=== PATIENT | male | born 1940 | race Caucasian/White ===

== ENCOUNTER 2019-11-25 01:08 | Inpatient (IN) | payer MEDICARE, OTHER ==
[~2019-11-25] VITALS: Ht 172.7 cm; Wt 102.8 kg
[2019-11-25] MEDS ORDERED: DUTA0.5C16 PO (01:19)
[2019-11-25] MEDS ORDERED: VERA120C2 PO (01:19)
[2019-11-25] MEDS ORDERED: LISI-167 PO (01:19)
[2019-11-25] MEDS ORDERED: [UNRECOGNIZED DRUG - CODE] PO (01:19)
[2019-11-25] MEDS ORDERED: [UNRECOGNIZED DRUG - OTHER] (01:19)
--- NOTE | 2019-11-25 01:19 | NUR ---
Pt arrives via [facility] from home for inability to answer some questions appropriately starting at 1300. Pt in home iso for being on cruise to [place]. Pt is awake, alert and cooperative. Pt with normal gait and extremity strength/movement. Speech is cleared but confused. No facial droop. No hx of stroke or TIA. Pt is able to tell wifes name, his name and current date, but is unable to recall birthdate and where he is. Pt in gown. EKG performed. Pt on full monitors. PA at bedside.
--- NOTE | 2019-11-25 01:22 | NUR ---
is: Silvia Mckeon [phone]
[2019-11-25] MEDS ORDERED: SODIUM CHLORIDE FLUSH 10ML SYR IVF ONE (01:30)
[2019-11-25 01:36] LABS: BASOPHILS # (AUTO) 0.01 x10^3/uL (0-0.1); BASOPHILS % (AUTO) 0 % (0-1); EOSINOPHILS # (AUTO) 0.01 x10^3/uL (0-0.4); EOSINOPHILS % (AUTO) 0 % (1-7); LYMPHOCYTES % (AUTO) 5 % (22-44); MD NO; MEAN CORPUSCULAR HGB CONC 33.3 g/dL (33.2-36.2); MEAN CORPUSCULAR VOLUME 90.2 fL (81-97); MEAN PLATELET VOLUME 8.3 fL (7.4-10.4); MONOCYTES # (AUTO) 0.68 x10^3/uL (0.2-0.8); MONOCYTES % (AUTO) 4 % (2-9); NEUTROPHILS # (AUTO) 14.68 x10^3/uL (1.8-6.8); NEUTROPHILS % (AUTO) 91 % (42-75); PLATELET COUNT 214 x10^3/uL (130-400); RED BLOOD COUNT 5.82 x10^6/uL (4.38-5.82); RED CELL DISTRIBUTION WIDTH 13.9 % (9.4-14.8)
[2019-11-25 01:45] LABS: ALANINE AMINOTRANSFERASE 34 U/L (12-78); ALBUMIN 3.8 g/dL (3.4-5.0); ANION GAP 9 mmol/L (5-15); CALCIUM 9.6 mg/dL (8.5-10.1); CHLORIDE 106 mmol/L (98-107); CREATININE 1.36 mg/dL (0.7-1.3)
[2019-11-25 01:47] LABS: ALKALINE PHOSPHATASE 111 U/L (45-117); BILIRUBIN,TOTAL 0.7 mg/dL (0.2-1.0)
--- NOTE | 2019-11-25 02:04 | NUR ---
Pt returned from CT. Pt given pillow. Pt placed back on monitors. VSS. Urinal at bedside for sample.
--- NOTE | 2019-11-25 02:19 | NUR ---
Pt able to stand without assist and pee in urinal. Urine sent. Pt placed 2L NC for RA sats of 86-88%.
[2019-11-25 02:23] LABS: MICROSCOPIC NOT IND
[2019-11-25 02:27] LABS: CULTURE INDICATED? NO
[2019-11-25] MEDS ORDERED: CEFTRIAXONE PMX 1GM/50ML 50 ML IV ONE (02:30)
[2019-11-25] MEDS ORDERED: AZITHROMYCIN 500 MG in SODIUM CHLORIDE 0.9% 250 ML IV ONE (02:30)
--- NOTE | 2019-11-25 02:41 | NUR ---
Mask placed on pt. MD at bedside for COVID swab. Pt on 3L NC.
[2019-11-25] MEDS ORDERED: CEFTRIAXONE PMX 1GM/50ML 50 ML ONE (02:57)
--- NOTE | 2019-11-25 03:05 | NUR ---
Lab at bedside for draw.
--- NOTE | 2019-11-25 03:23 | NUR ---
Rocephin started. Pt remains easily awakened and cooperative. Pt says "thank you" after every contact with RN or staff. Pt remains on 3L NC. Monitors intact. Call light within reach.
--- NOTE | 2019-11-25 04:06 | NUR ---
Pt sleeping in no acute distress, even and unlabored respirations. VSS. Safety precautions in place.
--- NOTE | 2019-11-25 04:33 | NUR ---
Medicated pt per MAR, pt easily aroused, having difficulty finding words, pt able to verbalized he is cold. Provided warm blanket.
--- NOTE | 2019-11-25 05:27 | NUR ---
Resting on gurney, easily awakened, pt is pleasant and cooperative.
--- NOTE | 2019-11-25 06:04 | NUR ---
Watching TV, pt denies pain or SOB at this time, pt states "I'm feeling good". VSS. Safety precautions in place.
[2019-11-25] MEDS ORDERED: ACETAMINOPHEN 325 MG TABLET PO PRN (06:30)
[2019-11-25] MEDS ORDERED: hydrALAzine 20 MG/ML, 1ML IVPush PRN (06:30)
[2019-11-25] MEDS ORDERED: PROMETHAZINE 25 MG/ML, 1ML IM PRN (06:30)
--- NOTE | 2019-11-25 06:36 | NUR ---
Report given to JAVIER Winn
--- NOTE | 2019-11-25 07:18 | NUR ---
Report given to day shift RN
[2019-11-25 07:40] VITALS: BP 155/99
[2019-11-25 07:41] LABS: TROPONIN I < 0.015 ng/mL (0.000-0.045)
[2019-11-25 08:15] VITALS: BP 137/84
[2019-11-25 11:00] VITALS: BP 131/91
[2019-11-25] MEDS ORDERED: HYDR25TA6 PO (11:43)
[2019-11-25] MEDS ORDERED: DOXA4TAB3 PO (11:43)
[2019-11-25] MEDS: HEPARIN 5,000 UNITS/ML, 1ML SQ SCH ×2 (11:54→20:48)
[2019-11-25] MEDS: VERAPAMIL ER 240MG TABLET.ER PO SCH ×2 (13:33→20:50)
[2019-11-25] MEDS: LISINOPRIL 40 MG TABLET PO SCH (13:33)
[2019-11-25] MEDS: DUTASTERIDE 0.5 MG CAPSULE PO SCH (13:33)
[2019-11-25] MEDS: DOXYCYCLINE 100 MG in DEXTROSE 5% 250 ML IV SCH (14:49)
[2019-11-25 15:22] VITALS: BP 127/77
[2019-11-25] MEDS: SODIUM CHLORIDE FLUSH 10ML SYR IVF SCH (16:00)
[2019-11-25] MEDS: DOXAZOSIN 2MG TABLET PO SCH (20:49)
[2019-11-25 21:00] VITALS: BP 115/72
[2019-11-25 22:45] VITALS: BP 122/76
[2019-11-26 00:03] VITALS: BP 101/64
[2019-11-26] MEDS: DOXYCYCLINE 100 MG in DEXTROSE 5% 250 ML IV SCH ×2 (02:31→14:43)
[2019-11-26] MEDS: CEFTRIAXONE PMX 1GM/50ML 50 ML IV SCH (03:47)
[2019-11-26] MEDS: HEPARIN 5,000 UNITS/ML, 1ML SQ SCH ×3 (03:48→20:39)
[2019-11-26 05:23] LABS: MEAN CORPUSCULAR HEMOGLOBIN 30.2 pg (27.5-34.5); MEAN CORPUSCULAR HGB CONC 33.3 g/dL (33.2-36.2); MEAN CORPUSCULAR VOLUME 90.8 fL (81-97); MEAN PLATELET VOLUME 8.2 fL (7.4-10.4); PLATELET COUNT 195 x10^3/uL (130-400); RED BLOOD COUNT 5.17 x10^6/uL (4.38-5.82); RED CELL DISTRIBUTION WIDTH 14.6 % (9.4-14.8)
[2019-11-26 05:32] LABS: ANION GAP 8 mmol/L (5-15); CALCIUM 8.7 mg/dL (8.5-10.1); CHLORIDE 108 mmol/L (98-107); CHOLESTEROL, TOTAL 146 mg/dL (140-239); CREATININE 1.18 mg/dL (0.7-1.3); TRIGLYCERIDES 135 mg/dL (50-200); VLDL CHOLESTEROL 27 mg/dL (0-25)
[2019-11-26 05:34] LABS: CHOL/HDL RATIO 3.9; HDL CHOL % 25 % (26-37); HDL CHOLESTEROL (DIRECT) 37 mg/dL (40-60); LDL CHOLESTEROL,CALCULATED 82 mg/dL (54-169); LDL/HDL RATIO 2.2 (0.5-3.0)
[2019-11-26 06:10] LABS: BASOPHILS # (AUTO) 0.04 x10^3/uL (0-0.1); BASOPHILS % (AUTO) 0 % (0-1); EOSINOPHILS # (AUTO) 0.28 x10^3/uL (0-0.4); EOSINOPHILS % (AUTO) 3 % (1-7); LYMPHOCYTES # (AUTO) 1.73 x10^3/uL (1-3.4); LYMPHOCYTES % (AUTO) 18 % (22-44); MD SCAN; MONOCYTES # (AUTO) 1.46 x10^3/uL (0.2-0.8); MONOCYTES % (AUTO) 15 % (2-9); NEUTROPHILS # (AUTO) 6.21 x10^3/uL (1.8-6.8); NEUTROPHILS % (AUTO) 64 % (42-75)
[2019-11-26 07:54] VITALS: BP 115/76
[2019-11-26] MEDS: SODIUM CHLORIDE FLUSH 10ML SYR IVF SCH ×2 (08:20→20:40)
[2019-11-26] MEDS: VERAPAMIL ER 240MG TABLET.ER PO SCH ×2 (08:20→20:40)
[2019-11-26] MEDS: LISINOPRIL 40 MG TABLET PO SCH (08:21)
[2019-11-26] MEDS: DUTASTERIDE 0.5 MG CAPSULE PO SCH (08:21)
[2019-11-26] MEDS ORDERED: LISINOPRIL 40 MG TABLET PO SCH (09:00)
[2019-11-26] MEDS ORDERED: DUTASTERIDE 0.5 MG CAPSULE PO SCH (09:00)
[2019-11-26] MEDS ORDERED: VERAPAMIL ER 240MG TABLET.ER PO SCH (09:00)
[2019-11-26 12:43] VITALS: BP 99/65
[2019-11-26] MEDS ORDERED: POTASSIUM CHLORIDE 20 MEQ TAB.ER.PRT PO ONE (14:30)
[2019-11-26 19:40] VITALS: BP 101/61
[2019-11-26] MEDS: DOXAZOSIN 2MG TABLET PO SCH (20:40)
[2019-11-27 01:13] VITALS: BP 111/71
[2019-11-27] MEDS: DOXYCYCLINE 100 MG in DEXTROSE 5% 250 ML IV SCH ×2 (02:35→13:52)
[2019-11-27] MEDS: CEFTRIAXONE PMX 1GM/50ML 50 ML IV SCH (03:48)
[2019-11-27] MEDS: HEPARIN 5,000 UNITS/ML, 1ML SQ SCH ×2 (03:50→12:00)
[2019-11-27 05:46] LABS: BASOPHILS # (AUTO) 0.03 x10^3/uL (0-0.1); BASOPHILS % (AUTO) 0 % (0-1); EOSINOPHILS # (AUTO) 0.43 x10^3/uL (0-0.4); EOSINOPHILS % (AUTO) 4 % (1-7); LYMPHOCYTES # (AUTO) 1.67 x10^3/uL (1-3.4); LYMPHOCYTES % (AUTO) 16 % (22-44); MD NO; MEAN CORPUSCULAR HEMOGLOBIN 30.2 pg (27.5-34.5); MEAN CORPUSCULAR HGB CONC 33.2 g/dL (33.2-36.2); MEAN PLATELET VOLUME 8.4 fL (7.4-10.4); MONOCYTES # (AUTO) 1.32 x10^3/uL (0.2-0.8); MONOCYTES % (AUTO) 13 % (2-9); NEUTROPHILS # (AUTO) 6.93 x10^3/uL (1.8-6.8); NEUTROPHILS % (AUTO) 67 % (42-75); PLATELET COUNT 189 x10^3/uL (130-400); RED BLOOD COUNT 5.08 x10^6/uL (4.38-5.82); RED CELL DISTRIBUTION WIDTH 14.7 % (9.4-14.8)
[2019-11-27 05:53] LABS: ANION GAP 6 mmol/L (5-15); CHLORIDE 108 mmol/L (98-107); CREATININE 1.41 mg/dL (0.7-1.3)
[2019-11-27 08:00] VITALS: BP 126/82
[2019-11-27] MEDS ORDERED: SODIUM CHLORIDE 0.9% 1,000 ML IV SCH (08:00)
[2019-11-27] MEDS: DUTASTERIDE 0.5 MG CAPSULE PO SCH (08:29)
[2019-11-27] MEDS: SODIUM CHLORIDE FLUSH 10ML SYR IVF SCH (08:30)
[2019-11-27] MEDS: LISINOPRIL 40 MG TABLET PO SCH (08:31)
[2019-11-27] MEDS: VERAPAMIL ER 240MG TABLET.ER PO SCH (09:38)
[2019-11-27] MEDS ORDERED: CEFD300C37 PO (12:51)
[2019-11-27] MEDS ORDERED: DOXY100T23 PO (12:51)
== END 2019-11-27 15:54 | disposition home or self-care (01) | DRG 70 ==
LOC: ED 01:19 → EDIP 05:32 → 3WST 08:13 → 3N 22:45
PROVIDERS: ADMIT Family Medicine; ATTEND Hospitalist
DX: G93.41 Metabolic encephalopathy (principal); J15.9 Unspecified bacterial pneumonia; N17.0 Acute kidney failure with tubular necrosis; J96.01 Acute respiratory failure with hypoxia; D72.829 Elevated white blood cell count, unspecified; R73.9 Hyperglycemia, unspecified; G43.909 Migraine, unspecified, not intractable, without status migrainosus; I48.91 Unspecified atrial fibrillation; I10 Essential (primary) hypertension; N40.0 Benign prostatic hyperplasia without lower urinary tract symptoms; E87.6 Hypokalemia
CPT/HCPCS: 36415; 70450; 71045; 80048; 80053; 80061; 81003; 82607; 83605; 83735; 83880; 84145; 84443; 84484; 85025; 87040; 93005; 96365; 96366; G0378; J0456; J0696; J1644; J7060; J7030; J7050